=== PATIENT | female | born 1995 | race Hispanic/Latino ===

== ENCOUNTER 2018-01-06 10:37 | Emergency (ER) | payer MEDICAID, OTHER ==
[~2018-01-06 10:37] MED LIST: Sodium Chloride 0.9% 1,000 ML BAG ONE
[2018-01-06 11:29] LABS: Bilirubin Negative (Negative); Blood, Urine Negative (Negative); Clarity Clear (Clear); Glucose, Urine (Dipstick) Negative (Negative); Leukocyte Negative (Negative); Nitrite Negative (Negative); Protein, Urine (Dipstick) Negative (Neg-Trace); Specific Gravity, Urine 1.015 (1.005-1.030); Urobilinogen 0.2 mg/dL (0.2-1.0); pH, Urine 8.5 (5.0-9.0)
[2018-01-06 11:30] LABS: #Basophils 0.1 thou/uL (0.0-0.2); #Eosinphils 0.2 thou/uL (0.0-0.7); #Lymphocytes 2.3 thou/uL (1.20-3.40); #Monocytes 0.6 thou/uL (0.11-0.59); %Basophils 0.7 % (0.0-1.0); %Eosinophils 2.2 % (0.0-10.0); %Lymphocytes 28.2 % (21.0-51.0); %Monocytes 7.9 % (0.0-10.0); %Neutrophils 61.1 % (42.0-75.0); Mean Corpuscular HGB CONC 35.8 g/dL (32.0-36.0); Mean Corpuscular Hemoglobin 33.1 pg (27.0-31.0); Mean Corpuscular Volume 92.4 fl (81.0-99.0); Mean Platelet Volume 7.9 fL (7.4-10.4); Platelet Count 229 thou/uL (130-400); RBC Distribution Width 10.3 % (11.5-14.5); Red Blood Cell (RBC) Count 4.53 mill/uL (4.20-5.40); White Blood Cell (WBC) Count 8.2 thou/uL (4.8-10.8)
[2018-01-06 11:31] LABS: Pregnancy Test - Urine (BHCG) POSITIVE (Negative); Pregu Control Bar Appear? YES (CONTROL BAR); Specific Gravity 1.015 (1.002-1.036)
[2018-01-06 11:32] LABS: Pregu Control Background? CLEAR/WHITE (CLR/WHITE)
[2018-01-06] MEDS ORDERED: Ondansetron HCl/PF 4 MG/2 ML Vial ONE (11:38)
[2018-01-06 11:51] LABS: ALT (SGPT) 15 U/L (8-55); AST (SGOT) 14 U/L (5-34); Albumin 4.1 g/dL (3.5-5.0); Alkaline Phosphatase 55 U/L (40-150); Anion Gap 14 mmol/L (10-20); BUN (Urea Nitrogen) 7 mg/dL (7.0-18.7); Bilirubin, Total 1.1 mg/dL (0.2-1.2); Calc. Creatinine Clearance 0 mL/min (70-130); Calcium 9.1 mg/dL (7.8-10.44); Carbon Dioxide 24 mmol/L (22-29); Chloride 105 mmol/L (98-107); Estimated GFR-MDRD Greater than 90; Glucose 91 mg/dL (70-105); Lipase 50 U/L (8-78); Potassium 4.2 mmol/L (3.5-5.1); Sodium 139 mmol/L (136-145)
[2018-01-06 12:51] LABS: Protein, Total 7.1 g/dL (6.0-8.3)
--- NOTE | 2018-01-06 13:15 | ULT ---
OB ULTRASOUND: HISTORY: Patient with positive and reported to be 7 weeks and has suprapubic pain for 1 wee k. History of prior miscarriage. FINDINGS: There is a fluid collection seen in the endometrial canal which contains both a pole and a yolk sac. The crown-rump length measures 0.36 cm in length consistent with gestational age by ultrasound of 6 weeks. Cardiac Doppler does demonstrate heart tones with a heart rate of 125 b.p.m . There are no findings on this exam to suggest a subchorionic hemorrhage. The ovaries demonstrate a normal sonographic appearance bilaterally. Doppler evaluation of each ovar y with spectral analysis and color flow evaluation does demonstrate arterial flow in each ovary. No free fluid is seen in the cul-de-sac. IMPRESSION: Single intrauterine gestation with heart tones documented. Gestational age by measurement of t he crown-rump length is 6 weeks. POS: DIAMOND
== END 2018-01-06 13:28 | disposition home or self-care (01) ==
LOC: MADERS 10:37
DX: O21.1 Hyperemesis gravidarum with metabolic disturbance (principal); O99.89 Other specified diseases and conditions complicating pregnancy, childbirth and the puerperium; R10.30 Lower abdominal pain, unspecified; Z3A.01 Less than 8 weeks gestation of pregnancy
CPT/HCPCS: 76815; 80053; 81003; 81025; 82150; 83690; 84702; 85025; 96361; 96374; J2405; J7050

== ENCOUNTER 2018-03-22 18:41 | Emergency (ER) | payer OTHER ==
[2018-03-22 19:40] LABS: PTT 30.6 SEC (22.9-36.1); Prothrombin Time 13.5 SEC (12.0-14.7)
[2018-03-22 19:50] LABS: ALT (SGPT) 21 U/L (8-55); AST (SGOT) 19 U/L (5-34); Albumin 3.4 g/dL (3.5-5.0); Alkaline Phosphatase 44 U/L (40-150); Anion Gap 16 mmol/L (10-20); BUN (Urea Nitrogen) 6 mg/dL (7.0-18.7); Bilirubin, Total 0.5 mg/dL (0.2-1.2); Calc. Creatinine Clearance 0 mL/min (70-130); Calcium 9.4 mg/dL (7.8-10.44); Carbon Dioxide 20 mmol/L (22-29); Chloride 108 mmol/L (98-107); Estimated GFR-MDRD Greater than 90; Globulin 2.9 g/dL (2.4-3.5); Glucose 92 mg/dL (70-105); Potassium 3.3 mmol/L (3.5-5.1); Protein, Total 6.3 g/dL (6.0-8.3); Sodium 141 mmol/L (136-145)
[2018-03-22] MEDS ORDERED: Potassium Chloride 20 MEQ TAB ONE (20:04)
[2018-03-22 20:29] LABS: #Basophils 0.1 thou/uL (0.0-0.2); #Eosinphils 0.4 thou/uL (0.0-0.7); #Lymphocytes 3.1 thou/uL (1.20-3.40); #Monocytes 0.8 thou/uL (0.11-0.59); #Neutrophils 9.7 thou/uL (1.40-6.50); %Basophils 0.7 % (0.0-1.0); %Lymphocytes 21.8 % (21.0-51.0); %Monocytes 5.6 % (0.0-10.0); %Neutrophils 68.9 % (42.0-75.0); Hemoglobin 12.2 g/dL (12.0-16.0); Mean Corpuscular HGB CONC 36.9 g/dL (32.0-36.0); Mean Corpuscular Hemoglobin 32.9 pg (27.0-31.0); Mean Corpuscular Volume 89.3 fL (78.0-98.0); Mean Platelet Volume 7.9 fL (7.4-10.4); Platelet Count 203 thou/uL (130-400); RBC Distribution Width 10.7 % (11.5-14.5); Red Blood Cell (RBC) Count 3.72 mill/uL (4.20-5.40); White Blood Cell (WBC) Count 14.1 thou/uL (4.8-10.8)
== END 2018-03-22 22:06 | disposition home or self-care (01) ==
LOC: MADERS 18:41
DX: O20.9 Hemorrhage in early pregnancy, unspecified (principal); Z3A.17 17 weeks gestation of pregnancy
CPT/HCPCS: 36415; 80053; 84702; 85025; 85610; 85730; 86900; 86901; 99284

== ENCOUNTER 2018-05-23 00:02 | Emergency (ER) | payer OTHER ==
[2018-05-23] MEDS ORDERED: Bupivacaine PF 0.5% 30 ML VIAL ONE (00:30)
== END 2018-05-23 01:04 | disposition home or self-care (01) ==
LOC: MADERS 00:02
DX: K04.7 Periapical abscess without sinus (principal); Z79.899 Other long term (current) drug therapy
CPT/HCPCS: 64400; S0020

== ENCOUNTER 2018-08-05 22:44 | Emergency (ER) | payer OTHER | END 2018-08-05 23:19 | disposition home or self-care (01) | LOC: MADERS 22:44 | DX: O99.89 Other specified diseases and conditions complicating pregnancy, childbirth and the puerperium (principal); Z3A.38 38 weeks gestation of pregnancy | CPT/HCPCS: 99284 ==

== ENCOUNTER 2023-03-09 21:11 | Emergency (ER) | payer BC ==
[2023-03-09] MEDS ORDERED: Lidocaine 1% (PF) 30 ML VIAL ONE (21:25)
== END 2023-03-09 22:06 | disposition home or self-care (01) ==
LOC: MADERS 21:11
DX: S61.213A Laceration without foreign body of left middle finger without damage to nail, initial encounter (principal); F17.290 Nicotine dependence, other tobacco product, uncomplicated; W55.32XA Struck by other hoof stock, initial encounter
CPT/HCPCS: 12001; J2001

== ENCOUNTER 2023-06-07 12:05 | Emergency (ER) | payer BC, SELFPAY ==
[2023-06-07] MEDS ORDERED: Acetaminophen 325 MG TAB ONE (12:49)
== END 2023-06-07 13:10 | disposition home or self-care (01) ==
LOC: MADERS 12:05
DX: S83.92XA Sprain of unspecified site of left knee, initial encounter (principal); F17.290 Nicotine dependence, other tobacco product, uncomplicated; X58.XXXA Exposure to other specified factors, initial encounter

== ENCOUNTER 2024-01-04 00:13 | Emergency (ER) | payer SELFPAY ==
[2024-01-04] MEDS ORDERED: Morphine 4 MG/ML VIAL ONE (00:29)
[2024-01-04] MEDS ORDERED: Ketorolac Tromethamine 30 MG (1 mL) VIAL ONE (00:29)
[2024-01-04] MEDS ORDERED: Ketamine 50 MG/ML (10ML VIAL) ONE (01:05)
[2024-01-04] MEDS ORDERED: Sodium Chloride 0.9% 1,000 ML ONE (01:07)
[2024-01-04] MEDS ORDERED: Ondansetron PF 4 MG/2 ML Vial ONE (01:14)
== END 2024-01-04 03:30 | disposition home or self-care (01) ==
LOC: MADERS 00:13
DX: S82.852A Displaced trimalleolar fracture of left lower leg, initial encounter for closed fracture (principal); F17.290 Nicotine dependence, other tobacco product, uncomplicated; W01.0XXA Fall on same level from slipping, tripping and stumbling without subsequent striking against object, initial encounter
CPT/HCPCS: 27818; 96372; 96374; 96375; 99152; J1885; J2270; J2405; J7050

== ENCOUNTER 2024-01-21 17:48 | Emergency (ER) | payer SELFPAY ==
[2024-01-21] MEDS ORDERED: Morphine 2 MG/ML VIAL ONE (20:09)
[2024-01-21] MEDS ORDERED: Morphine 4 MG/ML VIAL ONE (20:09)
== END 2024-01-21 20:50 | disposition home or self-care (01) ==
LOC: MADERS 17:48
DX: G89.18 Other acute postprocedural pain (principal); Z48.01 Encounter for change or removal of surgical wound dressing; F17.290 Nicotine dependence, other tobacco product, uncomplicated
CPT/HCPCS: 96372; 99282; J2270; J2272